=== PATIENT | female | born 1985 | race Caucasian/White ===

== ENCOUNTER 2017-04-14 04:17 | Emergency (ER) | payer OTHER ==
[2017-04-14] MEDS ORDERED: PROPARACAINE 0.5% OPHTH DROPS 15 ML BTL ONE (04:22)
[2017-04-14 04:23] VITALS: BP 129/83; PULSE 87; RESP 20; TEMP 98.2
[2017-04-14] MEDS ORDERED: PROPARACAINE 0.5% OPHTH DROPS 15 ML BTL LEFT EYE STA (04:32)
--- NOTE | 2017-04-14 04:47 | ED ---
General Adult HPI - General Chief complaint: ENT Stated complaint: eye irritation Time Seen by Provider: 04/14/17 04:31 Source: patient, RN notes reviewed, old records reviewed Mode of arrival: ambulatory Limitations: no limitations - History of Present Illness Initial comments: This is a 32-year-old female ER for evaluation of eye pain. Left eye pain. Severe. Patient that she will pain and drainage this morning. No purulent drainage. Denies any known injury but does feel like something is stuck in her eye. Denies change in vision or vision loss. Denies any other complaints. Patient does were contacts is currently wearing contacts - Related Data Previous Rx's Medication Instructions Recorded Tobramycin 0.3% Ophth Soln [Tobrex 1 drop LEFT EYE Q4H #1 bottle 04/14/17 0.3% Ophth Soln] Allergies Allergy/AdvReac Type Severity Reaction Status Date / Time Sulfa (Sulfonamide Allergy Rash/Hives Verified 04/14/17 04:23 Antibiotics) Review of Systems ROS Statement: Those systems with pertinent positive or pertinent negative responses have been documented in the HPI. ROS Other: All systems not noted in ROS Statement are negative. Past Medical History Additional Past Medical History / Comment(s): wpw- etrical heart condition History of Any Multi-Drug Resistant Organisms: None Reported Past Surgical History: No Surgical Hx Reported Past Psychological History: Anxiety, Bipolar, Depression Smoking Status: Former smoker Past Alcohol Use History: None Reported Past Drug Use History: None Reported General Exam - General Exam Comments Initial Comments: Left eye exam shows normal vision, normal pupillary reaction, fluoresceins stain shows positive abrasion. Limitations: no limitations General appearance: alert, in no apparent distress Head exam: Present: atraumatic, normocephalic, normal inspection Eye exam: Present: normal appearance, PERRL, EOMI. Absent: scleral icterus, conjunctival injection, periorbital swelling ENT exam: Present: normal exam, mucous membranes moist Neck exam: Present: normal inspection. Absent: tenderness, meningismus, lymphadenopathy Respiratory exam: Present: normal lung sounds bilaterally. Absent: respiratory distress, wheezes, rales, rhonchi, stridor Cardiovascular Exam: Present: regular rate, normal rhythm, normal heart sounds. Absent: systolic murmur, diastolic murmur, rubs, gallop, clicks GI/Abdominal exam: Present: soft, normal bowel sounds. Absent: distended, tenderness, guarding, rebound, rigid Extremities exam: Present: normal inspection, full ROM, normal capillary refill. Absent: tenderness, pedal edema, joint swelling, calf tenderness Back exam: Present: normal inspection Neurological exam: Present: alert, oriented X3, CN II-XII intact Psychiatric exam: Present: normal affect, normal mood Skin exam: Present: warm, dry, intact, normal color. Absent: rash Course Vital Signs 04/14/17 04:18 Temperature 98.2 F Pulse Rate 87 Respiratory 20 Rate Blood Pressure 129/83 O2 Sat by Pulse 99 Oximetry - Reevaluation(s) Reevaluation #1: Patient has resolution of pain with proparacaine Medical Decision Making - Medical Decision Making 32 female to the ED c/o eye pain, positive left corneal abrasion. Patient otherwise has no loss of vision will be discharged home on eye drops Disposition Clinical Impression: Left corneal abrasion Disposition: HOME SELF-CARE Instructions: Corneal Abrasion (ED) Prescriptions: Tobramycin 0.3% Ophth Soln [Tobrex 0.3% Ophth Soln] 1 drop LEFT EYE Q4H #1 bottle Referrals: Tabitha Smith MD [STAFF PHYSICIAN] - 1-2 days
--- NOTE | 2017-04-16 06:46 | CDI ---
Documentation Clarification OP Dear Santi TORRES, DO Please do addendum to ED report for HPI , Physical exam and MDM. Thank you, Scarlet Kearns Roll Sheeting Cutter If you have any question, Please contact certified orthotist practice manager at [phone] [facility]
== END 2017-04-14 04:59 | disposition home or self-care (01) ==
LOC: EC 04:17
DX: S05.02XA Injury of conjunctiva and corneal abrasion without foreign body, left eye, initial encounter (principal); Z87.891 Personal history of nicotine dependence; Z88.2 Allergy status to sulfonamides
CPT/HCPCS: 99283

== ENCOUNTER 2020-02-10 11:24 | Emergency (ER) | payer OTHER ==
[2020-02-10] MEDS ORDERED: diphenhydrAMINE 50 MG/ML 1 ML VIAL IVP STA (12:01)
[2020-02-10] MEDS ORDERED: HYDROmorphone 0.5 MG/0.5 ML SYRINGE IVP STA (12:01)
[2020-02-10] MEDS ORDERED: METOCLOPRAMIDE 5 MG/ML 2 ML VIAL IVP STA (12:01)
[2020-02-10] MEDS ORDERED: SODIUM CHLORIDE 0.9% 2,000 ML IV STA (12:01)
--- NOTE | 2020-02-10 12:16 | ED ---
Abdominal Pain HPI - General Chief Complaint: Abdominal Pain Stated Complaint: Abd Pain Time Seen by Provider: 02/10/20 11:52 Source: patient, RN notes reviewed Mode of arrival: ambulatory Limitations: no limitations - History of Present Illness Initial Comments: This is a 35-year-old female sent emergency Department chief complaint of epigastric pain. Patient states started on 1 AM. Patient had problems like this in the past where she wakes up with severe pain starts vomiting. Patient states that she's had her gallbladder evaluated in the past with no significant findings. Patient states that she saw her primary care physician today who gave her Tigan IM and some sort of GI cocktail with no change in her symptoms. Patient was advised to come to the emergency Department. No chest pain or shortness of breath. Denies any trauma. Patient offers no other associated symptoms no fevers or chills. - Related Data Home Medications Medication Instructions Recorded Confirmed Calcium Carbonate [Tums] 1,000 mg PO TID PRN 02/10/20 02/10/20 HYDROcodone/APAP 10-325MG [[place] 1 tab PO Q6H PRN 02/10/20 02/10/20 10-325] LORazepam [Ativan] 1 mg PO DAILY PRN 02/10/20 02/10/20 Omeprazole 20 mg PO DAILY PRN 02/10/20 02/10/20 Previous Rx's Medication Instructions Recorded Ondansetron Odt [Zofran Odt] 4 mg PO Q8HR PRN #10 tab 02/10/20 Allergies Allergy/AdvReac Type Severity Reaction Status Date / Time ketorolac [From Toradol] Allergy Anaphylaxis Verified 02/10/20 12:26 Sulfa (Sulfonamide Allergy Rash/Hives Verified 02/10/20 12:26 Antibiotics) Review of Systems ROS Statement: Those systems with pertinent positive or pertinent negative responses have been documented in the HPI. ROS Other: All systems not noted in ROS Statement are negative. Past Medical History Additional Past Medical History / Comment(s): wpw- etrical heart condition, PCOS History of Any Multi-Drug Resistant Organisms: None Reported Past Surgical History: No Surgical Hx Reported Past Psychological History: Anxiety, Bipolar, Depression Past Alcohol Use History: None Reported Past Drug Use History: None Reported General Exam Limitations: no limitations General appearance: alert, in no apparent distress Head exam: Present: atraumatic, normocephalic, normal inspection Eye exam: Present: normal appearance, PERRL, EOMI. Absent: scleral icterus, conjunctival injection, periorbital swelling ENT exam: Present: normal exam, normal oropharynx, mucous membranes moist Neck exam: Present: normal inspection, full ROM. Absent: tenderness, meningismus, lymphadenopathy Respiratory exam: Present: normal lung sounds bilaterally. Absent: respiratory distress, wheezes, rales, rhonchi, stridor Cardiovascular Exam: Present: regular rate, normal rhythm, normal heart sounds. Absent: systolic murmur, diastolic murmur, rubs, gallop, clicks GI/Abdominal exam: Present: soft, tenderness (Tenderness to the epigastric region), normal bowel sounds. Absent: distended, guarding, rebound, rigid Back exam: Absent: CVA tenderness (R), CVA tenderness (L) Neurological exam: Present: alert, oriented X3 Skin exam: Present: warm, dry, intact, normal color. Absent: rash Course Vital Signs 02/10/20 11:26 Temperature 98.7 F Pulse Rate 97 Respiratory 20 Rate Blood Pressure 135/89 O2 Sat by Pulse 99 Oximetry Medical Decision Making - Medical Decision Making 35-year-old presented for abdominal epigastric pain. Labs unremarkable patient feels greatly improved after antiemetics. This may related to spasms. She feels comfortable discharged with antiemetics and return parameters were discuss ed. - Lab Data Result diagrams: 02/10/20 12:17 02/10/20 12:19 Lab Results 02/10/20 02/10/20 02/10/20 Range/Units 12:17 12:19 12:19 WBC 11.3 H (3.8-10.6) k/uL RBC 4.69 (3.80-5.40) m/uL Hgb 13.8 (11.4-16.0) gm/dL Hct 41.0 (34.0-46.0) % MCV 87.4 (80.0-100.0) fL MCH 29.4 (25.0-35.0) pg MCHC 33.7 (31.0-37.0) g/dL RDW 13.5 (11.5-15.5) % Plt Count 331 (150-450) k/uL Neutrophils % 87 % Lymphocytes % 9 % Monocytes % 3 % Eosinophils % 1 % Basophils % 0 % Neutrophils # 9.8 H (1.3-7.7) k/uL Lymphocytes # 1.0 (1.0-4.8) k/uL Monocytes # 0.3 (0-1.0) k/uL Eosinophils # 0.2 (0-0.7) k/uL Basophils # 0.0 (0-0.2) k/uL Sodium 135 L (137-145) mmol/L Potassium 4.2 (3.5-5.1) mmol/L Chloride 103 (98-107) mmol/L Carbon Dioxide 22 (22-30) mmol/L Anion Gap 10 mmol/L BUN 11 (7-17) mg/dL Creatinine 0.50 L (0.52-1.04) mg/dL Est GFR (CKD-EPI)AfAm >90 (>60 ml/min/1.73 sqM) Est GFR (CKD-EPI)NonAf >90 (>60 ml/min/1.73 sqM) Glucose 109 H (74-99) mg/dL Plasma Lactic Acid Samir 0.9 (0.7-2.0) mmol/L Calcium 9.8 (8.4-10.2) mg/dL Total Bilirubin 0.8 (0.2-1.3) mg/dL AST 25 (14-36) U/L ALT 18 (4-34) U/L Alkaline Phosphatase 67 (38-126) U/L Total Protein 7.4 (6.3-8.2) g/dL Albumin 4.8 (3.5-5.0) g/dL Amylase 48 (30-110) U/L Lipase 32 (23-300) U/L Urine Color Urine Appearance (Clear) Urine pH (5.0-8.0) Ur Specific [place] (1.001-1.035) Urine Protein (Negative) Urine Glucose (UA) (Negative) Urine Ketones (Negative) Urine Blood (Negative) Urine Nitrite (Negative) Urine Bilirubin (Negative) Urine Urobilinogen (<2.0) mg/dL Ur Leukocyte Esterase (Negative) 02/10/20 Range/Units 12:26 WBC (3.8-10.6) k/uL RBC (3.80-5.40) m/uL Hgb (11.4-16.0) gm/dL Hct (34.0-46.0) % MCV (80.0-100.0) fL MCH (25.0-35.0) pg MCHC (31.0-37.0) g/dL RDW (11.5-15.5) % Plt Count (150-450) k/uL Neutrophils % % Lymphocytes % % Monocytes % % Eosinophils % % Basophils % % Neutrophils # (1.3-7.7) k/uL Lymphocytes # (1.0-4.8) k/uL Monocytes # (0-1.0) k/uL Eosinophils # (0-0.7) k/uL Basophils # (0-0.2) k/uL Sodium (137-145) mmol/L Potassium (3.5-5.1) mmol/L Chloride (98-107) mmol/L Carbon Dioxide (22-30) mmol/L Anion Gap mmol/L BUN (7-17) mg/dL Creatinine (0.52-1.04) mg/dL Est GFR (CKD-EPI)AfAm (>60 ml/min/1.73 sqM) Est GFR (CKD-EPI)NonAf (>60 ml/min/1.73 sqM) Glucose (74-99) mg/dL Plasma Lactic Acid Samir (0.7-2.0) mmol/L Calcium (8.4-10.2) mg/dL Total Bilirubin (0.2-1.3) mg/dL AST (14-36) U/L ALT (4-34) U/L Alkaline Phosphatase (38-126) U/L Total Protein (6.3-8.2) g/dL Albumin (3.5-5.0) g/dL Amylase (30-110) U/L Lipase (23-300) U/L Urine Color Yellow Urine Appearance Clear (Clear) Urine pH 7.5 (5.0-8.0) Ur Specific [place] 1.012 (1.001-1.035) Urine Protein Negative (Negative) Urine Glucose (UA) Negative (Negative) Urine Ketones Negative (Negative) Urine Blood Negative (Negative) Urine Nitrite Negative (Negative) Urine Bilirubin Negative (Negative) Urine Urobilinogen <2.0 (<2.0) mg/dL Ur Leukocyte Esterase Negative (Negative) Disposition Clinical Impression: Abdominal pain, Nausea & vomiting Disposition: HOME SELF-CARE Condition: Stable Instructions (If sedation given, give patient instructions): Abdominal Pain (ED) Additional Instructions: Please return to the Emergency Department if symptoms worsen or any other concerns. Prescriptions: Ondansetron Odt [Zofran Odt] 4 mg PO Q8HR PRN #10 tab PRN Reason: Nausea Is patient prescribed a controlled substance at d/c from ED?: No Referrals: Mati Luther MD [Primary Care Provider] - 1-2 days Maile Parish MD [STAFF PHYSICIAN] - 1-2 days Time of Disposition: 13:37
[2020-02-10 12:43] LABS: Appearance,Urine Clear (Clear); Bilirubin,Urine Negative (Negative); Blood,Urine Negative (Negative); Color,Urine Yellow; Glucose,Urine (UA) Negative (Negative); Ketones,Urine Negative (Negative); Leukocyte Esterase,Urine Negative (Negative); Nitrite,Urine Negative (Negative); PH, Urine 7.5 (5.0-8.0); Protein,Urine Negative (Negative); Specific Gravity,Urine 1.012 (1.001-1.035); Urobilinogen,Urine <2.0 mg/dL (<2.0)
[2020-02-10 13:13] LABS: Basophils % (A) 0 %; Eosinophils # (A) 0.2 k/uL (0-0.7); Eosinophils % (A) 1 %; HGB 13.8 gm/dL (11.4-16.0); Lymphocytes % (A) 9 %; MCH 29.4 pg (25.0-35.0); MCHC 33.7 g/dL (31.0-37.0); MCV 87.4 fL (80.0-100.0); Monocytes # (A) 0.3 k/uL (0-1.0); Monocytes % (A) 3 %; Neutrophils # (A) 9.8 k/uL (1.3-7.7); Neutrophils % (A) 87 %; Platelet Count 331 k/uL (150-450); RBC 4.69 m/uL (3.80-5.40); RDW 13.5 % (11.5-15.5); WBC 11.3 k/uL (3.8-10.6)
[2020-02-10 13:24] LABS: ALT 18 U/L (4-34); AST 25 U/L (14-36); African American GFR (CKD) >90 (>60 ml/min/1.73 sqM); Albumin 4.8 g/dL (3.5-5.0); Alkaline Phosphatase 67 U/L (38-126); Amylase 48 U/L (30-110); Anion Gap 10 mmol/L; Blood Urea Nitrogen 11 mg/dL (7-17); Calcium 9.8 mg/dL (8.4-10.2); Carbon Dioxide 22 mmol/L (22-30); Chloride 103 mmol/L (98-107); Glucose 109 mg/dL (74-99); Non-African American GFR(CKD) >90 (>60 ml/min/1.73 sqM); Potassium 4.2 mmol/L (3.5-5.1); Sodium 135 mmol/L (137-145); Total Bilirubin 0.8 mg/dL (0.2-1.3); Total Protein 7.4 g/dL (6.3-8.2)
[2020-02-10] MEDS ORDERED: ONDANSETRON 4 MG ODT STARTER PACK 2 TAB BTL PO STA (13:37)
[2020-02-10 13:52] VITALS: BP 121/78; PULSE 63; RESP 16; TEMP 98.2
== END 2020-02-10 13:50 | disposition home or self-care (01) ==
LOC: EC 11:24
DX: R10.13 Epigastric pain (principal); R11.2 Nausea with vomiting, unspecified; F41.9 Anxiety disorder, unspecified; F31.9 Bipolar disorder, unspecified; Z79.899 Other long term (current) drug therapy; Z88.2 Allergy status to sulfonamides; Z88.6 Allergy status to analgesic agent; Z87.42 Personal history of other diseases of the female genital tract
CPT/HCPCS: 36415; 80053; 82150; 83605; 83690; 85025; 81003; 99284; 96374; 96375 ×2; 96361; J1200; J2765; S0119; J1170

== ENCOUNTER → 2023-08-21 | Day surgery (SDC) | payer BC ==
[2023-08-17 11:23] VITALS: BMI 42.6
[~2023-08-21] MED LIST: DEXAMETHASONE SOD PHOSPHATE 4 MG/ML 1 ML VIAL IV ONE; DEXAMETHASONE SOD PHOSPHATE 4 MG/ML 1 ML VIAL ONE; HYDROcodone/APAP 5-325MG 1 EACH TAB ONE; HYDROcodone/APAP 5-325MG 1 EACH TAB PO ONE; HYDROmorphone (PF) 1 MG/ML ONE; LACTATED RINGERS 1,000 ML IV ONE; LIDOCAINE 1% (10MG/ML) FOR IV START INTRADERMA PRN; LIDOCAINE 1% INJ 10MG/ML (20 ML MDV) ONE; MIDAZOLAM 2 MG/2 ML VIAL IV PRN; MIDAZOLAM 2 MG/2 ML VIAL ONE; ONDANSETRON 4 MG/2 ML VIAL IVP ONE; PROPOFOL 10 MG/ML 20 ML VIAL IV ONE; Pre Op ABX Message 1 EACH MISC MISCELLANE ONE; ROPIVACAINE 5 MG/ML 30 ML VIAL ONE; SCOPOLAMINE 1 MG/72 HR PATCH TRANSDERM ONE; SODIUM CHLORIDE 0.9% (PF) 10 ML VIAL ONE; SODIUM CHLORIDE 0.9% 100 ML with ceFAZolin 3,000 MG IV ONE; SUCCINYLCHOLINE CHLORIDE 200 MG/10 ML VIAL IV ONE; ceFAZolin 1,000 MG in SODIUM CHLORIDE 0.9% 1,000 ML IRRIGATION ONE; fentaNYL (PF) 50 MCG/ML 2 ML AMP IVP ONE; fentaNYL (PF) 50 MCG/ML 2 ML AMP ONE
[2023-08-21] MEDS: LACTATED RINGERS 1,000 ML IV SCH (06:45)
--- NOTE | 2023-08-21 08:22 | P.ANPRN ---
Procedure Note - Anesthesia - Nerve Block Performed Left Adductor Canal Single Time Out Performed: Yes Date of Procedure: 08/21/23 Procedure Start Time: 07:05 Procedure Stop Time: 07:12 Location of Patient: PreOp Indication: Acute Post-Operative Pain, Requested by Surgeon Sedation Type: Sedate with meaningful contact maintained Preparation: Sterile Prep Position: Supine Needle Types: Pajunk Needle Gauge: 21 Ultrasound used to visualize needle placement: Yes Ultrasound used to observe medication spread: Yes Injectate: 0.5% Ropivacaine (see comment for volume) (20 ml + 10 ml NS + 4 mg Dexamethason) Blood Aspirated: No Pain Paresthesia on Injection Noted: No Resistance on Injection: Normal Image Stored and Saved: Yes Events: Uneventful and Well Tolerated
--- NOTE | 2023-08-21 08:24 | P.ANPRN ---
Procedure Note - Anesthesia - Nerve Block Performed Left Popliteal Single Time Out Performed: Yes Date of Procedure: 08/21/23 Procedure Start Time: 07:13 Procedure Stop Time: 07:21 Location of Patient: PreOp Indication: Acute Post-Operative Pain, Requested by Surgeon Sedation Type: Sedate with meaningful contact maintained Preparation: Sterile Prep Position: Right Lateral Needle Types: Pajunk Needle Gauge: 21 Ultrasound used to visualize needle placement: Yes Ultrasound used to observe medication spread: Yes Injectate: 0.5% Ropivacaine (see comment for volume) (20 ml + 10 ml NS + 4 mg Dexamethasone) Blood Aspirated: No Pain Paresthesia on Injection Noted: No Resistance on Injection: Normal Image Stored and Saved: Yes Events: Uneventful and Well Tolerated
[2023-08-21] MEDS: HYDROmorphone 0.5 MG/0.5 ML SYRINGE IVP PRN ×2 (09:26→09:46)
--- NOTE | 2023-08-21 09:29 | P.OP ---
Date of Procedure: 08/21/23 Preoperative Diagnosis: 1. Left ankle instability 2. Spontaneous rupture flexor tendon left ankle (the peroneus brevis tendon) 3. Ganglion cyst left foot Postoperative Diagnosis: 1. Same 2. Same 3. Same Procedure(s) Performed: 1. Secondary repair of left lateral ankle ligaments 2. Secondary repair flexor tendon left ankle 3. Excision of ganglion cyst left foot Implants: Arthrex fiber Guy anchors 2 Arthrex internal brace Anesthesia: JAMES Surgeon: Jake Elkins Estimated Blood Loss (ml): 5 Pathology: none sent Condition: stable Disposition: PACU Description of Procedure: Prior to the patient being brought to the operating room, anesthesia a dministered a nerve block on the affected extremity. The patient was brought into the operative room and placed on table supine position. Timeout was taken to confirm correct patient identifiers, correct laterality of surgery, and correct procedure. Once all staff in the room were in agreement with the timeout, the patient was induced and placed under general anesthesia. A well- padded tourniquet was placed on the left calf and a bump underneath the hip of the expected extremity to internally rotate the leg. The leg was then prepped and draped in usual manner. The leg was exsanguinated and the tourniquet inflated to 250 mmHg. Attention was directed over the lateral ankle, where a linear incision was made at the midline of the fibula and a curved anteriorly over the sinus tarsi. The incision was deepened down to the subcutaneous tissue careful to identify, avoid, and retract any neurovascular structures and cauterize any bleeding vessels. Blunt dissection was continued to the posterior subcutaneous tissue. A blunt instrument was then inserted into the peroneal tendon sheath to lie between the retinaculum and the tendon. Sharp instrument was then used to incise the retinaculum and tendon sheath to expose the peroneal tendons. The peroneus brevis tendon was delivered into the surgical field, and that show that there was a significant fraying of the tendon with 2 split longitudinal tears and significant inflamed synovium within the tendon sheath. Also of note was a low-lying peroneus brevis muscle belly that was in the fibular groove. Sharp instrumentation was utilized to remove any of the abnormal tendinous tissue, inflamed synovium, and the excessive Proteus brevis muscle belly in the fibular groove. The area was thoroughly irrigated with antibiotic saline. 2-0 Vicryl was used to re-tubularize the peroneus brevis tendon. Peroneus brevis tendon was placed back in the peroneal groove on the posterior fibula. And then the Proteus longus tendon was visually inspected and noted to be normal. The wound is again irrigated with antibiotic saline. 0 Vicryl was used to repair the peroneal retinaculum within the tip of the groove to lock the tendons in place. The rest of the tendon sheath and retinaculum were closed with 0 Vicryl. Then attention was directed over the anterior ankle where Blunt dissection was continued down to the lateral ankle joint capsule and ligamentous structures. The capsule and ligamentous structures were sharply incised off of the anterior surface the lateral malleolus. A Raymond was used to remove the cortical bone on the anterior surface the lateral malleolus and the roughened edges smoothed with a rasp. This is to allow adhesion of the ligaments upon repair. With the ankle in neutral position, the soft tissue over the lateral aspect of the talus, anterior to the joint surface, and near the junction of the neck, was palpated for the location of the 4.75 mm anchor. A small stab incision was made through the tissue and then the drill hole for the 4.75 mm anchor was made into the talus in such a way to avoid the ankle and subtalar joints. The hole was tapped and then the 4.75 mm anchor inserted and advanced down to proper depth. The gore inserter was removed and the suture was set aside. The same drill bit was used for the drill hole in the lateral malleolus for the 3.5 mm anchor. Entry Level Business Analyst holes for the fiber Leonardo anchors were made, one inferior and one superior, to the 3.4 mm drill hole. With the drill guide still in place, the fiber Leonardo anchors were inserted through the guide and then impacted down to proper depth. The guide was removed as was the gore inserter. Tension was placed on the suture to lock the anchor into the bone. The wound is then thoroughly irrigated with antibiotic saline. The suture on the fiber Leonardo anchors was used to capture the distal ligamentous and capsular structures. With the ankle and maximum dorsiflexion and eversion, the suture was tied bringing the ligament and capsular structures back to the anterior surface the lateral malleolus. The 2 arms of the suture from the 4.75 mm anchor were then inserted through the 3.5 mm anchor, which was then aligned with the drill hole lateral malleolus. Utilizing described tensioning techniques, the anchor and suture were inserted into lateral malleolus and the anchor advanced until proper depth. At that point ankle was tested for stability: Where anterior drawer and inversion stress are negative.The wound is irrigated with antibiotic saline. The fiber Leonardo suture was then used to sew the soft tissue flap from the periosteum of the lateral malleolus over the repair site in a pants over vest fashion. The subcutaneous layer was closed with 4-0 Monocryl. And skin closure done with 4-0 Stratafix in a running subcuticular manner. Then attention was directed over the dorsal lateral forefoot where a palpable soft tissue mass was noted just anterior to the base of the fifth metatarsal. A lazy S skin incision was made over the area. The incision was deepened down to the subcutaneous tissue careful to identify, avoid, and retract any neurovascular structures and cauterize any bleeding vessels. Careful dissection was done to the fascia which then revealed the cyst. The cyst was easily identified from the surrounding normal soft tissue, and was bluntly dissected and removed. The cyst was incised and a clear gelatinous fluid was within the cyst indicating a likely ganglion. Blunt cautery was used to cauterize the base of the wound to help prevent reoccurrence. The area was inspected for any remaining signs of the lesion and none were found. The wound was irrigated with antibiotic saline. Subcutaneous closure was done with 4-0 Monocryl and skin closure done with 4-0 Stratafix in a running subarticular manner Dermal glue was placed over all incisions and allowed to dry. Steri-Strips were applied and then a Arthrex jumpstart dressing. A dry sterile dressing was applied to the ankle. The tourniquet was released and capillary refill return to all digits on the foot. The patient was placed in a well-padded, well molded plaster posterior mold/sugar tong splint. The ankle was held in neutral position until the splint was dried. Once the splint was dried, anesthesia was reversed and the patient was taken recovery with vital signs stable
[2023-08-21 09:34] VITALS: RESP 16; TEMP 96.8
[2023-08-21 11:20] VITALS: BP 138/65; PULSE 94
== END | disposition home or self-care (01) ==
LOC: OR 05:40
PROVIDERS: ATTEND Podiatrist
DX: M25.372 Other instability, left ankle (principal); M66.372 Spontaneous rupture of flexor tendons, left ankle and foot; M67.472 Ganglion, left ankle and foot; G89.18 Other acute postprocedural pain; I45.6 Pre-excitation syndrome; E28.2 Polycystic ovarian syndrome; E66.9 Obesity, unspecified; Z88.2 Allergy status to sulfonamides; Z88.6 Allergy status to analgesic agent; Z87.891 Personal history of nicotine dependence; Z68.41 Body mass index [BMI] 40.0-44.9, adult
CPT/HCPCS: 28200; 27695; 27698; 64447; 81025; 64445; C1713 ×2; J2250; J0330; J1100; J2405; J0690; J2001; J3010; J1170 ×2; J2795; J2704